=== PATIENT | male | born 1990 | race Caucasian/White ===

== ENCOUNTER 2017-03-31 19:36 | Emergency (ER) | payer BC ==
[~2017-03-31] VITALS: Ht 182.9 cm; Wt 88.9 kg
[~2017-03-31 19:36] MED LIST: ALBUTEROL SULF8.5 GM IH; ATARAX,VISTARIL25 MG PO; FIORICET,ESG1 TABLET PO; NAPROSYN500 MG PO; PEPCID20 MG PO; PREDNISONE20 MG PO; ZOFRAN4 MG PO
[2017-03-31] MEDS ORDERED: PREDNISONE20 MG PO (20:32)
[2017-03-31 21:05] VITALS: BP 163/81
== END 2017-03-31 21:06 | disposition home or self-care (01) ==
LOC: EME 19:36
DX: L23.7 Allergic contact dermatitis due to plants, except food (principal)
CPT/HCPCS: 99281; 99283; J7512